=== PATIENT | female | born 1990 | race Caucasian/White ===

== ENCOUNTER → 2020-07-27 10:16 | Outpatient (CLI) | payer OTHER, SELFPAY ==
--- NOTE | ~2020-07-27 | US_ITS ---
EXAMINATION: US pelvic complete DATE: 07/27/2020 10:52 INDICATION: Irregular cycles Comparison:No prior studies for comparison. TECHNIQUE: Multiple transabdominal and endovaginal sonographic images of the pelvis performed. FINDINGS: The uterus measures 8.4 x 3.8 x 5.2 cm. The endometrial complex measures 1 cm. The right ovary measures 2.5 x 1.5 x 2.5 cm and the left ovary measures 3.3 x 3.1 x 3.4 cm. There is a 2.1 cm left ovarian cyst. There is no free fluid in the pelvis. There are no abnormal masses seen on either side. IMPRESSION: 1. 2.1 cm left ovarian cyst. Reviewed, dictated and finalized at location A.
== END ==
PROVIDERS: PCP Physician Assistant; Visit Provider Nurse Practitioner
DX: N92.6 Irregular menstruation, unspecified (principal); N83.202 Unspecified ovarian cyst, left side
CPT/HCPCS: 76856

== ENCOUNTER → 2020-09-19 14:45 | Outpatient (CLI) | payer OTHER, SELFPAY ==
--- NOTE | ~2020-09-19 | US_ITS ---
EXAMINATION: US transvaginal DATE: 09/19/2020 15:10 INDICATION: Ovarian cyst. TECHNIQUE: Multiple transvaginal sonographic images of the pelvis were obtained. COMPARISON: Ultrasound pelvis 07/27/2020 FINDINGS: The uterus measures 8.5 x 3.9 x 5.0 cm. There is no free fluid in the pelvis. The endometrial complex measures 6 mm in thickness. The right ovary measures 3.2 x 2.3 x 2.9 cm. There is a 2.3 cm mass with low level echoes in right ovary, consistent with a hemorrhagic cyst. The left ovary measures 2.0 x 0 .9 x 1.7 cm. There is normal vascular flow in the ovaries. IMPRESSION: 1. 2.3 cm hemorrhagic cyst in right ovary, new from 07/27/2020. Reviewed, dictated and finalized at location A. SROOM INSTRUCTIONAL AIDE
== END ==
PROVIDERS: PCP Physician Assistant; Visit Provider Nurse Practitioner
DX: N83.201 Unspecified ovarian cyst, right side (principal)
CPT/HCPCS: 76830

== ENCOUNTER → 2020-11-07 10:45 | Outpatient (CLI) | payer OTHER, SELFPAY ==
--- NOTE | ~2020-11-07 | US_ITS ---
EXAMINATION: US transvaginal EXAM DATE: 11/07/2020 11:07 INDICATION: ovarian cyst . TECHNIQUE: Pelvic transvaginal sonogram was performed. There are multiple grayscale and Doppler imag es available for interpretation. There is no prior study for comparison. FINDINGS: Uterus measures 7.7 x 3.6 x 4.7 cm, and is morphologically normal. Endometrial stripe rashi sures 7.4 mm, within normal limits. There is no free pelvic fluid. Right adnexa: The ovary measures 2.5 x 1.4 x 2.1 cm and is morphologically normal. Ovarian vascular f low confirmed. Left adnexa: The ovary measures 2.3 x 1.2 x 1.8 cm and is morphologically normal. Ovarian vascular fl ow confirmed. IMPRESSION: 1. Unremarkable pelvic ultrasound exam. Reviewed, dictated and finalized at location B. ERCIAL ARTIST
== END ==
PROVIDERS: Visit Provider Obstetrics & Gynecology Gynecology
DX: N83.201 Unspecified ovarian cyst, right side (principal)
CPT/HCPCS: 76830

== ENCOUNTER 2024-08-13 12:39 | Outpatient (CLI) | payer OTHER, SELFPAY ==
--- NOTE | ~2024-08-13 | US_ITS ---
EXAMINATION: US transvaginal DATE: 08/13/2024 13:07 INDICATION: PCOS TECHNIQUE: Multiple endovaginal sonographic images of the pelvis were obtained. COMPARISON: 11/07/2020 FINDINGS: Uterus: 7.6 x 3.6 x 4.7 cm. Endometrial complex measures 0.7 mm. Right Ovary: 3.2 x 1.8 x 2.2 cm. Vascular flow is present. Multiple follicles measuring up to 1.4 cm. Left Ovary: 2.9 x 1.9 x 2.9 cm. Vascular flow is present. Multiple follicles. 1.9 cm simple cyst vers us dominant follicle. There is no free fluid in the pelvis. IMPRESSION: Normal pelvic sonogram findings. Reviewed, dictated and finalized at location K.
== END 2024-08-13 12:40 | disposition home or self-care (01) ==
LOC: MICIMG 12:41
PROVIDERS: PCP Physician Assistant; Visit Provider Nurse Practitioner
DX: E28.2 Polycystic ovarian syndrome (principal)
CPT/HCPCS: 76830

== ENCOUNTER 2024-11-30 10:57 | Outpatient (CLI) | payer OTHER, SELFPAY ==
--- NOTE | ~2024-11-30 | XR_ITS ---
EXAMINATION: XR hysterosalpingogram DATE: 11/30/2024 12:53 INDICATION: Infertility. TECHNIQUE: Fluoroscopy was performed by the radiologist during contrast infusion into the endometrial cavity of the uterus by the primary physician. Fluoroscopy exposure time was 0.2 minutes. The total number of images was 7. FINDINGS: The intrauterine cavity is normal in morphology. The fallopian tubes are normal in caliber. There is normal free intraperitoneal spillage of contrast on either side. IMPRESSION: 1. Normal hysterosalpingogram. Reviewed, dictated and finalized at location A. ING INTERVENTION TEACHER
== END 2024-11-30 10:58 | disposition home or self-care (01) ==
PROVIDERS: PCP Physician Assistant; Visit Provider Obstetrics & Gynecology Gynecology
DX: Z31.49 Encounter for other procreative investigation and testing (principal)
CPT/HCPCS: 58340; 74740; Q9966

== ENCOUNTER 2025-10-29 08:45 | Outpatient (CLI) | payer OTHER, SELFPAY ==
[2025-10-29 10:16] LABS: Hematocrit 39.7 % (37.0-47.0); Hemoglobin 13.1 g/dL (12.0-15.0)
[2025-10-29 10:29] LABS: Glucose 1 Hour PP 50gm Dose 90 mg/dL
[2025-10-29 11:08] LABS: Syphilis IgG/IgM Antibody Non-Reactive (Nonreactive)
[2025-10-29 11:09] LABS: HIV 1/2 Ab P24 Ag Result Negative (Negative)
[2025-10-29] MEDS: RHO(D) IMMUNE GLOBULIN 300 MCG/2 ML SYRINGE IM (14:15)
== END 2025-10-29 08:46 | disposition home or self-care (01) ==
PROVIDERS: PCP Physician Assistant; Visit Provider Obstetrics & Gynecology Gynecology
DX: Z34.03 Encounter for supervision of normal first pregnancy, third trimester (principal)
CPT/HCPCS: 36415; 82306; 82947; 85014; 85018; 85461; 86593; 86703; 86850; 86900; 86901; 90384; 96372; G0432; J2790